=== PATIENT | male | born 1940 | race Caucasian/White ===

== ENCOUNTER 2019-06-29 09:23 | Outpatient (CLI) | payer OTHER | END 2019-06-29 14:25 | disposition home or self-care (01) | LOC: NUCLEAR 09:23 | PROVIDERS: ATTEND Internal Medicine Cardiovascular Disease | DX: R06.09 Other forms of dyspnea (principal); E85.81 Light chain (AL) amyloidosis; I10 Essential (primary) hypertension; N18.3 Chronic kidney disease, stage 3 (moderate); E07.89 Other specified disorders of thyroid ==